=== PATIENT | male | born 2000 | race Caucasian/White ===

== ENCOUNTER 2025-01-27 13:47 | Outpatient (CLI) | payer BC, SELFPAY ==
--- NOTE | 2025-01-27 13:30 | DI.RAD_ITS ---
Exam(s) XR KNEE RT 3V AP,LAT,LESLI EXAM: XR KNEE RT 3V AP,LAT,LESLI CLINICAL HISTORY: BILATERAL KNEE PAIN. TECHNIQUE: 2D digital imaging was performed. Three views. COMPARISON: CR XR KNEE LT 3V AP,LAT,LESLI from 01/27/2025 FINDINGS: BONES: No acute fracture is present. No bony destructive lesion is seen. JOINTS: The knee is normally aligned. No joint effusion is seen. Joint spaces are maintained. SOFT TISSUE: Normal. IMPRESSION: Unremarkable radiographs of the right knee. DATA REPOSITORY: RADIATION DOSE DELIVERED:
--- NOTE | 2025-01-27 13:30 | DI.RAD_ITS ---
Exam(s) XR KNEE LT 3V AP,LAT,LESLI EXAM: XR KNEE LT 3V AP,LAT,LESLI CLINICAL HISTORY: BILATERAL KNEE PAIN. TECHNIQUE: 2D digital imaging was performed. Three views. COMPARISON: No exams were available for comparison FINDINGS: BONES: No acute fracture is present. There is a mild concavity measuring 13 millimeters transverse at the articular aspect of the lateral femoral condyle with appearance consistent with an old osteochondral defect. No bony destructive lesion is seen. JOINTS: The knee is normally aligned. No joint effusion is seen. The joint spaces are maintained. SOFT TISSUE: Normal. 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 DATA REPOSITORY: RADIATION DOSE DELIVERED:
== END 2025-01-27 13:48 | disposition home or self-care (01) ==
LOC: DIORS 13:48
PROVIDERS: Visit Provider Student in an Organized Health Care Education/Training Program
DX: M25.561 Pain in right knee (principal); M25.562 Pain in left knee
CPT/HCPCS: 73562